=== PATIENT | male | born 1945 | race Two or more races ===

== ENCOUNTER 2024-07-10 05:30 | Day surgery (SDC) | payer OTHER ==
[~2024-07-10 05:30] MED LIST: FINASTERIDE; LIPITOR40 MG PO; MULTIVITAMINAS; PLAVIX75 MG PO; PROTONIX40 MG PO; SYNTHROID112 MCG PO; TAMS0.4C PO
[2024-07-10] MEDS ORDERED: CEFTRIAXONE SODIUM 2,000 MG VIAL IV ONE (08:15)
[2024-07-10] MEDS ORDERED: ENOXAPARIN SODIUM 40 MG/0.4 ML SYRINGE SUBCUTANEO ONE (08:15)
[2024-07-10] MEDS ORDERED: BUPIVACAINE LIPOSOME/PF 266 MG/20 ML VIAL IJ ONE (08:15)
[2024-07-10] MEDS ORDERED: METRONIDAZOLE/SODIUM CHLORIDE 500 MG/100 ML PIGGYBACK IV ONE (08:15)
[2024-07-10] MEDS ORDERED: ONDANSETRON HCL 2 MG/ML VIAL IV ONE (09:35)
[2024-07-10] MEDS ORDERED: MORPHINE SULFATE 2 MG/ML CARTRIDGE IV ONE ×3 (09:55→10:25)
[2024-07-10] MEDS ORDERED: CELEBREX200MG PO (10:00)
[2024-07-10] MEDS ORDERED: NEURONTIN300 MG PO (10:00)
[2024-07-10] MEDS ORDERED: POLY119PG PO (10:00)
[2024-07-10] MEDS ORDERED: PERCOCET 5-3251 EACH PO (10:00)
== END 2024-07-10 12:00 | disposition home or self-care (01) ==
LOC: CIR.AMB 05:30
PROVIDERS: ATTEND Surgery
DX: K40.90 Unilateral inguinal hernia, without obstruction or gangrene, not specified as recurrent (principal)
CPT/HCPCS: 49650; C1781